=== PATIENT | female | born 1995 | race Caucasian/White ===

== ENCOUNTER 2019-11-06 08:00 | Inpatient (IN) ==
[2019-11-06] MEDS ORDERED: *HR* FentaNYL (PF) 100 MCG/2 ML VIAL IVP PRN (10:45)
[2019-11-06] MEDS ORDERED: Naloxone 0.4 MG/ML INJ IVP PRN (10:45)
[2019-11-06] MEDS ORDERED: Ondansetron 4 MG/2 ML VIAL IVP PRN ×3 (10:45→22:06)
[2019-11-06] MEDS ORDERED: Lidocaine 1% 20 ML MDV INFILT PRN (10:45)
[2019-11-06] MEDS ORDERED: Famotidine 20 MG/2 ML VIAL IVP PRN (10:45)
[2019-11-06] MEDS ORDERED: Metoclopramide 10 MG/2 ML VIAL IVP PRN ×2 (10:45→22:06)
[2019-11-06 11:20] LABS: Basophils % 0.3 %; Eosinophils # 0.2 K/mcL (0.0-0.6); Eosinophils % 1.3 %; Hemoglobin 11.3 g/dL (11.5-15.4); Immature Granulocytes % 0.9 % (0-4); Lymphocytes # 1.4 K/mcL (0.6-4.6); Lymphocytes % 9.7 %; Mean Corpuscular HGB Conc 34.2 g/dL (31.6-35.5); Mean Corpuscular Hemoglobin 30.2 pg (28.0-33.3); Mean Corpuscular Volume 88.2 fL (83.0-100.0); Mean Platelet Volume 9.3 fL (9.4-12.4); Monocytes # 0.8 K/mcL (0.0-1.3); Monocytes % 5.6 %; Neutrophils # 11.5 K/mcL (1.6-8.9); Platelet Count 289 K/mcL (140-400); Red Blood Count 3.74 M/mcL (3.82-4.97); Red Cell Distribution Width 12.5 % (11.5-14.5); Segmented Neutrophils % 82.2 %
[2019-11-06 11:38] LABS: Amphetamine Screen,Urine Negative ng/mL (Cutoff=1000); Barbiturate Screen,Urine Negative ng/mL (Cutoff=200); Benzodiazepines Screen,Urine Negative ng/mL (Cutoff=200); Cannabinoid Screen,Urine Negative ng/mL (Cutoff = 50); Cocaine Screen,Urine Negative ng/mL (Cutoff= 300); Opiate Screen,Urine Negative ng/mL (Cutoff=300); Phencyclidine Screen,Urine Negative ng/mL (Cutoff=25)
[2019-11-06] MEDS ORDERED: miSOPROStoL 25 MCG TABLET PO PRN (12:32)
[2019-11-06] MEDS ORDERED: Oxytocin 20 units/ LR 1000 mL 20 UNIT/1,000 ML BAG IVC SCH (12:45)
[2019-11-06] MEDS ORDERED: Ropivacaine/PF 0.2% 20 ML VIAL EP ONE (13:24)
[2019-11-06] MEDS ORDERED: *HR* FentaNYL (PF) 100 MCG/2 ML VIAL EP ONE (13:24)
[2019-11-06] MEDS ORDERED: EPHEDrine 50 MG/ML VIAL IVP PRN (13:24)
[2019-11-06] MEDS ORDERED: Epidural Premix (fent/bupiv) 110 ML EP SCH (13:30)
[2019-11-06] MEDS: Ringers Solution, Lactated 1,000 ML IVC SCH ×2 (14:25→18:00)
[2019-11-06] MEDS ORDERED: Ropivacaine/PF 0.2% 20 ML VIAL ONE (15:54)
[2019-11-06] MEDS ORDERED: *HR* FentaNYL (PF) 100 MCG/2 ML VIAL ONE (15:54)
[2019-11-06] MEDS ORDERED: 0.9 % Sodium Chloride 1,000 ML ONE (18:13)
[2019-11-06] MEDS ORDERED: Ringers Solution, Lactated 1,000 ML ONE (18:13)
[2019-11-06] MEDS ORDERED: Chloroprocaine/PF 20 ML VIAL INFILT ONE (18:32)
[2019-11-06] MEDS ORDERED: *HR* Oxytocin 10 UNIT/ML VIAL IM ONE (18:45)
[2019-11-06] MEDS ORDERED: *HR* Morphine Sulfate/PF 10 MG/10 ML AMPUL ONE (19:02)
[2019-11-06] MEDS ORDERED: *HR* HYDROmorphone PF 0.5 MG/0.5 ML SYRINGE IVP PRN (19:16)
[2019-11-06] MEDS ORDERED: Acetaminophen IV 1,000 MG/100 ML INFUS..BTL IVPB ONE (19:16)
[2019-11-06] MEDS ORDERED: Sennosides 8.6 MG TABLET PO PRN (22:06)
[2019-11-06] MEDS ORDERED: Ringers Solution, Lactated 1,000 ML IVC SCH (22:06)
[2019-11-06] MEDS ORDERED: Rho Immune Globulin 1,500 UNIT SYRINGE IM ONE (22:06)
[2019-11-06] MEDS: metroNIDAZOLE 500 MG TABLET PO SCH (22:52)
[2019-11-06] MEDS: Ibuprofen 600 MG TABLET PO PRN (22:52)
[2019-11-06] MEDS: cephALEXin 500 MG CAPSULE PO SCH (22:52)
[2019-11-07] MEDS: Oxytocin 20 units/ LR 1000 mL 20 UNIT/1,000 ML BAG IVC SCH ×2 (00:46→09:09)
[2019-11-07] MEDS: *HR* OxyCODONE/APAP 5/325 TABLET PO PRN ×4 (00:50→23:08)
[2019-11-07] MEDS: Ibuprofen 600 MG TABLET PO PRN ×2 (04:58→13:28)
[2019-11-07 06:18] LABS: Basophils % 0.2 %; Eosinophils # 0.1 K/mcL (0.0-0.6); Eosinophils % 0.5 %; Hematocrit 30.1 % (35.3-44.9); Immature Granulocytes % 0.8 % (0-4); Lymphocytes # 1.6 K/mcL (0.6-4.6); Lymphocytes % 9.7 %; Mean Corpuscular HGB Conc 33.2 g/dL (31.6-35.5); Mean Corpuscular Hemoglobin 29.6 pg (28.0-33.3); Mean Corpuscular Volume 89.1 fL (83.0-100.0); Mean Platelet Volume 9.6 fL (9.4-12.4); Monocytes # 0.9 K/mcL (0.0-1.3); Monocytes % 5.8 %; Neutrophils # 13.2 K/mcL (1.6-8.9); Platelet Count 244 K/mcL (140-400); Red Blood Count 3.38 M/mcL (3.82-4.97); Red Cell Distribution Width 12.5 % (11.5-14.5); White Blood Count 15.9 K/mcL (4.3-11.1)
[2019-11-07] MEDS: Prenatal Vit/FA 1 EACH TABLET PO SCH (08:12)
[2019-11-07] MEDS: metroNIDAZOLE 500 MG TABLET PO SCH ×3 (08:12→20:23)
[2019-11-07] MEDS: cephALEXin 500 MG CAPSULE PO SCH ×3 (08:12→20:26)
[2019-11-07] MEDS: Simethicone 80 MG TAB.CHEW PO PRN ×2 (13:28→23:05)
[2019-11-08] MEDS: *HR* OxyCODONE/APAP 5/325 TABLET PO PRN ×2 (06:05→13:33)
[2019-11-08 07:49] VITALS: BP 111/69
[2019-11-08] MEDS: metroNIDAZOLE 500 MG TABLET PO SCH ×2 (08:11→15:22)
[2019-11-08] MEDS: cephALEXin 500 MG CAPSULE PO SCH ×2 (08:11→15:22)
[2019-11-08] MEDS: Prenatal Vit/FA 1 EACH TABLET PO SCH (08:11)
[2019-11-08] MEDS: Ibuprofen 600 MG TABLET PO PRN (12:36)
== END 2019-11-08 17:25 | disposition home or self-care (01) | DRG 787 ==
LOC: 1NENULAB 10:12 → 1NENUOBS 22:47
PROVIDERS: ADMIT Student in an Organized Health Care Education/Training Program; ATTEND Student in an Organized Health Care Education/Training Program